=== PATIENT | male | born 1965 | race Caucasian/White ===

== ENCOUNTER → 2016-11-24 | Day surgery (SDC) | payer MEDICAID ==
[~2016-11-24] VITALS: Ht 188 cm; Wt 136.1 kg
[~2016-11-24] MED LIST: GABAPENTIN 600600 MG PO; GLIPIZIDE10 MG PO; HYDROXYZINE50 MG PO; LISINOPRIL 20MG20 MG PO; LISINOPRIL HCTZ1 TAB PO; LORATADINE 10MG10 M1 PO; METFORMIN1000 MG PO; PLAVIX75 MG PO; PREDNISONE 10MG10 MG PO; ROSUVASTATIN CA20 MG PO; TRAMADOL50 M1 PO; TRAZODONE 50MG50 MG PO
[2016-11-24 10:15] VITALS: BP 132/87
[2016-11-24 10:38] VITALS: BP 132/87
[2016-11-24 10:41] VITALS: BP 104/89
--- NOTE | 2016-11-24 10:48 | Procedure Note ---
Procedure detail Date of procedure: 11/24/16 Anesthesiologist: Julio Carvajal M.D. Complications: None Pre-procedure diagnosis: Degenerative disc disease of lumbar spine with lumbar radiculopathy symptoms Post-procedure diagnosis: Same Indications for procedure: This patient is a pleasant 51-year-old white female who we are treating for low back pain with lumbar radiculopathy symptoms. MRI does show bulging disc at L4- L5 and L5-S1. He has pain going down both legs. We will do a lumbar epidural steroid injection today to see if this will give him some relief. Procedure detail: Procedure: Lumbar epidural steroid injection under fluoroscopy Informed consent was obtained and the risks and benefits of the procedure were explained to the patient. The patient was taken to the procedure room and noninvasive monitors placed, including noninvasive blood pressure cuff and pulse oximeter. The back was viewed using C-arm Fluoroscopy and prepped using Betadine as a cleansing solution and the L4-L5 interspace was palpated. Skin and subcutaneous tissues were anesthetized using lidocaine 1.5% and a 25-gauge needle. After this, an 18-gauge Touhy epidural needle was placed into the L4-L5 interspace and advanced using fluoroscopic guidance and loss of resistance to air until the epidural space was encountered. After confirmation of needle placement in the epidural space, with dye, a solution containing lidocaine 1.5%, 4 mL and Depo-Medrol 80 mg were incrementally injected into the lumbar epidural space. The patient tolerated the procedure well with no complications. The patient was observed in the Pain Clinic and then discharged home neurologically intact. Plan and disposition: We will follow-up with him in 2 weeks. We'll reevaluate his symptoms at that time. at [id number]
[2016-11-24 11:02] VITALS: BP 117/91
== END ==
LOC: PM 10:01
PROC: 3E0R3BZ Introduction of Anesthetic Agent into Spinal Canal, Percutaneous Approach (ICD-10-PCS; principal; 2016-11-24)
PROC: 3E0R33Z Introduction of Anti-inflammatory into Spinal Canal, Percutaneous Approach (ICD-10-PCS; 2016-11-24)
DX: M51.16 Intervertebral disc disorders with radiculopathy, lumbar region (principal)
CPT/HCPCS: J1030; Q9966

== ENCOUNTER 2017-01-12 08:57 | Day surgery (SDC) | payer MEDICAID ==
[~2017-01-12] VITALS: Ht 188 cm; Wt 136.1 kg
[2017-01-12 09:36] VITALS: BP 141/94
[2017-01-12 09:48] VITALS: BP 141/94
[2017-01-12 09:50] VITALS: BP 166/98
--- NOTE | 2017-01-12 09:57 | Procedure Note ---
Procedure detail Date of procedure: 01/12/17 Anesthesiologist: Branden Hinojosa Complications: None Pre-procedure diagnosis: Degenerative disease lumbar spine multiple levels. Lumbar postlaminectomy syndrome. Lumbar radiculopathy symptoms. Post-procedure diagnosis: Same. Indications for procedure: Very pleasant 51-year-old white male returns our procedure clinic today for a second lumbar epidural steroid injection L4-5 level. Patient had 2-1/2 weeks of relief in terms of his low back pain and bilateral hip and leg pain after receiving his first lumbar epidural steroid injection. Procedure detail: Procedure: Lumbar epidural steroid injection under fluoroscopy Informed consent was obtained and the risks and benefits of the procedure were explained to the patient. The patient was taken to the procedure room and noninvasive monitors placed, including noninvasive blood pressure cuff and pulse oximeter. The back was viewed using C-arm Fluoroscopy and prepped using Betadine as a cleansing solution and the L4-L5 interspace was palpated. Skin and subcutaneous tissues were anesthetized using lidocaine 1.5% and a 25-gauge needle. After this, an 18-gauge Touhy epidural needle was placed into the L4-L5 interspace and advanced using fluoroscopic guidance and loss of resistance to air until the epidural space was encountered. After confirmation of needle placement in the epidural space, with dye, a solution containing lidocaine 1.5%, 4 mL and Depo-Medrol 80 mg were incrementally injected into the lumbar epidural space. The patient tolerated the procedure well with no complications. The patient was observed in the Pain Clinic and then discharged home neurologically intact. Plan and disposition: Patient was evaluated 10 minutes post procedure. He is doing well. He'll return to see us in the pain clinic for further evaluation. at [id number]
[2017-01-12 10:10] VITALS: BP 128/87
== END 2017-01-12 10:10 | disposition home or self-care (01) ==
LOC: PM 08:57
PROC: 3E0R3BZ Introduction of Anesthetic Agent into Spinal Canal, Percutaneous Approach (ICD-10-PCS; principal; 2017-01-12)
PROC: 3E0R33Z Introduction of Anti-inflammatory into Spinal Canal, Percutaneous Approach (ICD-10-PCS; 2017-01-12)
PROC: B01B1ZZ Fluoroscopy of Spinal Cord using Low Osmolar Contrast (ICD-10-PCS; 2017-01-12)
DX: M51.16 Intervertebral disc disorders with radiculopathy, lumbar region (principal); M96.1 Postlaminectomy syndrome, not elsewhere classified
CPT/HCPCS: J1040; Q9966